=== PATIENT | female | born 1995 | race Caucasian/White ===

== ENCOUNTER 2016-06-02 20:31 | Emergency (ER) | payer MEDICAID ==
[2016-06-02 20:40] VITALS: BP 127/75; PULSE 104; RESP 18; TEMP 97.7; O2SAT 98
--- NOTE | 2016-06-02 21:02 | DX ---
Left Wrist 4 Views including a Navicular View. Clinical Indications: Pain following trauma. Findings: A fracture is not identified. The bone alignment is normal. Impression: Negative for fracture.
--- NOTE | 2016-06-02 21:17 | UCPHY ---
H & P Time Seen by Provider: 06/02/16 20:46 Patient Type: Established HPI/ROS: HPI Left wrist injury. 20-year-old female by private vehicle. She reports that on she fell on an outstretched left wrist. She complains of continued pain to the distal ventral left wrist with flexion of the hand. She is left-hand dominant. She denies any other injury or complaint. ROS: Constitutional: No fever, no chills. No weakness. Musculoskeletal: No back pain. No neck pain. No other extremity pain except noted. Skin: No rashes. No lacerations or abrasions. Neurological: No headache. No focal weakness or altered sensation. Past medical history: Asthma. Social history: She is here by herself. Physical Exam: General Appearance: Alert, no distress. This patient is responding to questions appropriately and in full sentences. This patient appears well- hydrated and well-nourished. Eyes: Pupils equal and round no pallor or injection. No lid edema, erythema or injection. Left hand and wrist exam: Significant for some mild tenderness to palpation distal ventral aspect of left wrist. No soft tissue swelling, erythema, ecchymosis or warmth noted. No snuffbox tenderness on palpation. No pain on axial loading of the thumb or other 4 digits. She is able to flex the left wrist passively and actively without considerable pain as well as extend the left wrist passively and actively without considerable pain. The left hand is neurovascularly intact. Skin: Warm and dry, no rashes. No lacerations or abrasions. Extremities are symmetrical. All joints range without pain or impingement except noted. Psychiatric: No agitation. No depression. Database: EKG: Imaging: Procedures: Emergency department course: Patient sent for x-rays from triage. After my evaluation she was placed in a Velcro thumb spica splint applied to her left hand and wrist. Results of her x- rays were discussed with her. Plan will be to have her follow up with Orthopedics for re-evaluation in 2-3 days. Ibuprofen for pain. Return to Urgent Care precautions were discussed with her. All of her questions were answered. She was discharged in good condition. Differential Diagnosis: The differential diagnosis on this patient includes but is not limited to left wrist sprain. Fracture, subluxation, dislocation of the left wrist unlikely. This represents a partial list of diagnoses considered. These considerations are based on history, physical exam, past history, reassessment and diagnostic testing. Smoking Status: Never smoked Constitutional: Initial Vital Signs Temperature (C) 36.5 C 06/02/16 20:38 Heart Rate 104 H 06/02/16 20:38 Respiratory Rate 18 06/02/16 20:38 Blood Pressure 127/75 H 06/02/16 20:38 O2 Sat (%) 98 06/02/16 20:38 O2 Delivery Mode Nasal Cannula Allergies/Adverse Reactions: No Known Allergies Allergy (Verified 12/15/15 14:14) Home Medications: Medication Instructions Recorded Flovent Diskus 03/02/14 Nabumetone 12/15/15 MDM/Departure - Depart Disposition: Home, Routine, Self-Care Clinical Impression: Sprain of left wrist Condition: Good Instructions: Wrist Sprain (ED) Additional Instructions: Read and follow provided instructions. Follow-up with your primary care physician or heart specialist in 2-3 days for re-evaluation as discussed Ibuprofen dosin mg every 6 hours with meals for the next 3 days only. Return to the emergency department for worsening pain, swelling, discoloration, loss of sensation or other serious concerns. Referrals: NONE *PRIMARY CARE P,. [Primary Care Provider] - As per Instructions Milton Lott MD [Medical Doctor] - As per Instructions - PQRS PQRS Measurement: Not applicable.
== END 2016-06-02 21:40 | disposition home or self-care (01) ==
LOC: CED 20:31
DX: S63.502A Unspecified sprain of left wrist, initial encounter (principal); W19.XXXA Unspecified fall, initial encounter
CPT/HCPCS: 73110-PO; 99214-PO; G0463-PO; L3908